=== PATIENT | female | born 1995 ===

== ENCOUNTER 2016-12-23 14:00 | Emergency (ER) | payer MEDICAID ==
[2016-12-23 15:40] VITALS: BP 123/78; PULSE 78; RESP 19; TEMP 98.4; O2SAT 99
--- NOTE | 2016-12-23 16:15 | ED PDOC ---
HPI: General Adult Time Seen by Provider: 12/23/16 14:42 Chief Complaint (Nursing): Flu-like Symptoms Chief Complaint (Provider): Subjective Fever History Per: Patient History/Exam Limitations: no limitations Onset/Duration Of Symptoms: Days (about one week) Additional Complaint(s): 14:42 Ryan Moeller is a 21 year old female that presents to the ED with a chief complaint of a subjective fever that she has been experiencing for the past week. Patient also presents with her 2 month old son, who has a viral ailment, from whom she may have developed her symptoms. PMD: Danita Rosales Past Medical History Reviewed: Historical Data, Nursing Documentation, Vital Signs Vital Signs: Last Vital Signs Temp 98.4 F 12/23/16 15:37 Pulse 78 12/23/16 15:37 Resp 19 12/23/16 15:37 BP 123/78 12/23/16 15:37 Pulse Ox 99 12/23/16 16:18 - Medical History PMH: Asthma Denies: Chronic Kidney Disease - Family History Family History: States: Unknown Family Hx - Immunization History Hx Tetanus Toxoid Vaccination: No Hx Influenza Vaccination: No Hx Pneumococcal Vaccination: No - Home Medications Home Medications: Ambulatory Orders Medication Instructions Recorded Cetirizine Hydrochloride [Zyrtec] 10 mg PO DAILY #20 tab 10/06/15 Mometasone Furoate [Nasonex] 2 spray NS DAILY #1 bottle 10/06/15 - Allergies Allergies/Adverse Reactions: Allergies Allergy/AdvReac Type Severity Reaction Status Date / Time No Known Allergies Allergy Unverified 12/23/16 14:34 Review of Systems Constitutional: Positive for: Fever (subjective) Physical Exam - Reviewed Nursing Documentation Reviewed: Yes Vital Signs Reviewed: Yes - Physical Exam Appears: Positive for: Non-toxic, No Acute Distress Head Exam: Positive for: ATRAUMATIC, NORMOCEPHALIC Skin: Positive for: Normal Color, Warm, Dry Eye Exam: Positive for: Normal appearance, EOMI, PERRL ENT: Positive for: Normal ENT Inspection Neck: Positive for: Normal, Painless ROM Cardiovascular/Chest: Positive for: Regular Rate, Rhythm. Negative for: Murmur Respiratory: Positive for: Normal Breath Sounds. Negative for: Respiratory Distress Gastrointestinal/Abdominal: Positive for: Soft. Negative for: Tenderness Back: Negative for: L CVA Tenderness, R CVA Tenderness Extremity: Positive for: Normal ROM, Capillary Refill (normal ). Negative for: Tenderness Neurologic/Psych: Positive for: Alert, Oriented, Gait (normal ). Negative for: Motor/Sensory Deficits - Laboratory Results Urine POC: Negative Urine dip results: Negative for: Leukocyte Esterase, Blood, Nitrate, Ketones, Glucose, Bilirubin, Protein - ECG O2 Sat by Pulse Oximetry: 99 (RA) Pulse Ox Interpretation: Normal - Radiology X-Ray: Viewed By Me, Read By Radiologist X-Ray Interpretation: No Acute Disease Medical Decision Making Medical Decision Makin:15 Initial Impression: Possible Viral Ailment from sick contact with child, r/o flu Initial Plan: * Urine * Urine dip * Chest X-ray (to r/o flu) * Flu Swab * Rapid Strep * Reevaluation Scribe Attestation: Documented by Emily Figueredo, acting as a scribe for Job Sanchez PA-C. Provider Scribe Attestation: All medical record entries made by the Scribe were at my direction and personally dictated by me. I have reviewed the chart and agree that the record accurately reflects my personal performance of the history, physical exam, medical decision making, and the department course for this patient. I have also personally directed, reviewed, and agree with the discharge instructions and disposition. CXR normal negative strep and flu likely viral ailment normal examination, normal vitals. stable for discharge Disposition - Clinical Impression Clinical Impression: Viral syndrome - Patient ED Disposition Is Patient to be Admitted: No Counseled Patient/Family Regarding: Studies Performed, Diagnosis, Need For Followup - Disposition Disposition: Routine/Home Disposition Time: 18:37 Condition: IMPROVED Additional Instructions: lots of fluids follow up with doctor without fail
--- NOTE | 2016-12-23 16:49 | RAD ---
HISTORY: cough, fever COMPARISON: No prior. TECHNIQUE: Standard protocol for this study/examination. FINDINGS: LUNGS: No active pulmonary disease. PLEURA: No significant pleural effusion identified. No pneumothorax apparent. CARDIOVASCULAR: Normal. OSSEOUS STRUCTURES: No significant abnormalities. VISUALIZED UPPER ABDOMEN: Normal. OTHER FINDINGS: None. IMPRESSION: No active disease.
== END 2016-12-23 18:45 | disposition home or self-care (01) ==
LOC: H.ER 14:00
DX: B34.9 Viral infection, unspecified (principal); R50.9 Fever, unspecified; R05 Cough